=== PATIENT | male | born 1955 | race Caucasian/White ===

== ENCOUNTER 2019-03-02 15:01 | Emergency (ER) | payer BC ==
[~2019-03-02] VITALS: Ht 170.2 cm; Wt 74.8 kg
[2019-03-02] MEDS ORDERED: SIMVASTATIN5 MG (15:36)
[2019-03-02] MEDS ORDERED: TAMS0.4C (15:36)
[2019-03-02] MEDS ORDERED: MONTELUKAST SODI4 M1 (15:36)
[2019-03-02] MEDS ORDERED: HORIZANT300 MG (15:37)
== END 2019-03-02 18:15 | disposition home or self-care (01) ==
LOC: ER 15:01
DX: K04.7 Periapical abscess without sinus (principal)